=== PATIENT | male | born 1940 | race Caucasian/White ===

== ENCOUNTER → 2020-02-18 | Emergency (ER) | payer MEDICARE, OTHER ==
[~2020-02-18] VITALS: Ht 172.7 cm; Wt 97.5 kg
[~2020-02-18] MED LIST: AMLO10TA13 PO; ATEN-60 PO; CHOLCAP11 PO; CLOP75TA41 PO; HYDR25TA4 PO; LOSA-39 PO; METF-371 PO; MULT1TAB95 PO; SIMV-13 PO; TAMS0.4C36 PO
[2020-02-18 15:00] VITALS: BP 141/52
== END | disposition home or self-care (01) ==
LOC: ER 14:14
DX: S09.8XXA Other specified injuries of head, initial encounter (principal); M25.511 Pain in right shoulder; E11.9 Type 2 diabetes mellitus without complications; I10 Essential (primary) hypertension; Z86.73 Personal history of transient ischemic attack (TIA), and cerebral infarction without residual deficits; X58.XXXA Exposure to other specified factors, initial encounter; Y93.89 Activity, other specified; Y92.89 Other specified places as the place of occurrence of the external cause; Y99.8 Other external cause status
CPT/HCPCS: 70450; 73030

== ENCOUNTER 2021-06-10 22:24 | Inpatient (IN) | payer MEDICARE, OTHER ==
[~2021-06-10] VITALS: Ht 172.7 cm; Wt 92.2 kg
[~2021-06-10 22:24] MED LIST changes: +AMLO-496 PO; -AMLO10TA13 PO; -CLOP75TA41 PO; +CLOP75TA70 PO
[2021-06-10 23:22] LABS: Basophils # (auto) 0.2 10 ^3/uL (0-0.2); Eosinophils # (auto) 0.2 10 ^3/uL (0-0.8); Eosinophils % (auto) 2.4 % (0.0-7.0); Hematocrit 43.4 % (41.0-53.0); Hemoglobin 14.6 g/dL (13.5-17.5); Lymphocytes # (auto) 1.2 10 ^3/uL (0.4-5.4); Lymphocytes % (auto) 18.6 % (10.0-50.0); Mean Corpuscular Hemoglobin 29.3 pg (28.0-32.0); Mean Corpuscular Hgb Conc. 33.5 g/dL (32.0-36.0); Mean Corpuscular Volume 87.3 fL (80.0-100.0); Monocytes # (auto) 0.7 10 ^3/uL (0-1.3); Monocytes % (auto) 11.8 % (0.0-12.0); Neutrophils % (auto) 64.2 % (37.0-80.0); Red Blood Cells 4.97 10^6/uL (4.5-5.90); Red Cell Distribution Width 14.7 % (11.8-14.3); White Blood Cell 6.3 10^3/uL (4.4-10.8)
[2021-06-10 23:40] LABS: Albumin 3.9 g/dL (3.4-5.0); Anion Gap 10 (5-15); Blood Urea Nitrogen 62 mg/dL (7-18); Calcium 9.4 mg/dL (8.5-10.1); Carbon Dioxide 24 mmol/L (21-32); Chloride 105 mmol/L (98-107); Glucose 110 mg/dL (74-106); Potassium 3.9 mmol/L (3.5-5.1); Sodium 139 mmol/L (136-145)
[2021-06-10 23:49] LABS: Alanine Aminotransferase 32 U/L (16-61); Aspartate Aminotransferase 21 U/L (15-37); GFR African American 40 mL/min; GFR Non-African American 33 mL/min; Total Protein 7.2 g/dL (6.4-8.2)
[2021-06-11 00:01] LABS: Alkaline Phosphatase 60 U/L (45-117); Bilirubin, Total 0.8 mg/dL (0.2-1.0)
[2021-06-11] MEDS ORDERED: NITROGLYCERIN 0.4 MG SL TAB SL PRN (02:45)
[2021-06-11] MEDS ORDERED: ONDANSETRON HCL 4 MG/2 ML VIAL IV PRN (02:45)
[2021-06-11] MEDS ORDERED: DEXTROSE (50%) 50ML SYRG IV PRN (02:45)
[2021-06-11] MEDS ORDERED: MORPHINE SULFATE INJECTION 2 MG/ML SYRG IV PRN (02:45)
[2021-06-11] MEDS ORDERED: SODIUM CHLORIDE 0.9% 500 ML IV ONE (02:45)
[2021-06-11] MEDS: ACCU-CHEK COMFORT CURVE STRIP VI SCH ×4 (06:58→21:26)
[2021-06-11] MEDS: InsuLIN REG 1unit/0.01ml Soln (100units/ml) SC SCH ×4 (07:00→21:25)
[2021-06-11 09:00] VITALS: BP 141/62
[2021-06-11] MEDS ORDERED: PANTOPRAZOLE 40 MG TAB PO SCH (10:00)
[2021-06-11] MEDS: ATENOLOL 25 MG TAB PO SCH ×2 (10:00→21:25)
[2021-06-11] MEDS: ASPirin 81 mg TAB PO SCH (10:43)
[2021-06-11] MEDS: CLOPIDOGREL BISULFATE 75 MG TAB PO SCH (10:44)
[2021-06-11] MEDS: ENOXAPARIN SOD 40 MG/0.4 ML SYRINGE SC SCH (10:44)
[2021-06-11] MEDS: amLODIPine BESYLATE 5 MG TAB PO SCH (11:25)
[2021-06-11 13:00] VITALS: BP 137/62
[2021-06-11 16:25] LABS: Urine Bacteria NONE SEEN /hpf (None Seen); Urine Blood Negative /uL (Negative); Urine Specific Gravity 1.013 (1.001-1.035); Urine WBC None Seen /hpf (0 - 3)
[2021-06-11 16:36] LABS: Creatinine, Urine 49 mg/dL (30.0-125.0); Sodium Urine 70 mmol/L (40-220)
[2021-06-11 17:00] VITALS: BP 135/66
[2021-06-11] MEDS: ATORVASTATIN 20 MG TAB PO SCH (21:24)
[2021-06-11 21:46] VITALS: BP 113/67
[2021-06-12] MEDS: ACETAMINOPHEN 325 MG TAB PO PRN ×2 (03:53→20:12)
[2021-06-12 04:58] VITALS: BP 124/55
[2021-06-12] MEDS: ACCU-CHEK COMFORT CURVE STRIP VI SCH ×3 (06:13→17:00)
[2021-06-12] MEDS: InsuLIN REG 1unit/0.01ml Soln (100units/ml) SC SCH ×3 (06:14→18:21)
[2021-06-12 07:04] LABS: Basophils # (auto) 0 10 ^3/uL (0-0.2); Basophils % (auto) 0.9 % (0.0-2.0); Eosinophils # (auto) 0.2 10 ^3/uL (0-0.8); Eosinophils % (auto) 3.3 % (0.0-7.0); Hematocrit 39.5 % (41.0-53.0); Hemoglobin 13.2 g/dL (13.5-17.5); Lymphocytes # (auto) 0.9 10 ^3/uL (0.4-5.4); Lymphocytes % (auto) 17.6 % (10.0-50.0); Mean Corpuscular Hemoglobin 28.9 pg (28.0-32.0); Mean Corpuscular Hgb Conc. 33.3 g/dL (32.0-36.0); Mean Corpuscular Volume 86.9 fL (80.0-100.0); Monocytes # (auto) 0.7 10 ^3/uL (0-1.3); Monocytes % (auto) 14.5 % (0.0-12.0); Neutrophils # (auto) 3.1 10 ^3/uL (1.6-8.6); Neutrophils % (auto) 63.7 % (37.0-80.0); Nucleated Red Blood Cells % 0.1 %; Red Blood Cells 4.55 10^6/uL (4.5-5.90); Red Cell Distribution Width 14.7 % (11.8-14.3); White Blood Cell 4.9 10^3/uL (4.4-10.8)
[2021-06-12 07:12] LABS: Potassium 4.2 mmol/L (3.5-5.1)
[2021-06-12 07:19] LABS: Albumin 3.3 g/dL (3.4-5.0); BUN/Creatinine Ratio 29.5; Bilirubin, Total 0.8 mg/dL (0.2-1.0); Calcium 8.8 mg/dL (8.5-10.1); Total Protein 6.3 g/dL (6.4-8.2)
[2021-06-12 09:00] VITALS: BP 144/81
[2021-06-12] MEDS: ATENOLOL 25 MG TAB PO SCH (10:00)
[2021-06-12] MEDS: amLODIPine BESYLATE 5 MG TAB PO SCH (11:17)
[2021-06-12] MEDS: ASPirin 81 mg TAB PO SCH (11:17)
[2021-06-12] MEDS: CLOPIDOGREL BISULFATE 75 MG TAB PO SCH (11:18)
[2021-06-12] MEDS: ENOXAPARIN SOD 40 MG/0.4 ML SYRINGE SC SCH (11:19)
[2021-06-12 13:09] VITALS: BP 137/72
[2021-06-12 17:00] VITALS: BP 134/62
[2021-06-13 00:20] VITALS: BP 128/52
[2021-06-13] MEDS: ATORVASTATIN 20 MG TAB PO SCH ×2 (00:32→22:41)
[2021-06-13] MEDS: ATENOLOL 25 MG TAB PO SCH ×3 (00:33→22:42)
[2021-06-13] MEDS: InsuLIN REG 1unit/0.01ml Soln (100units/ml) SC SCH ×5 (00:34→22:43)
[2021-06-13] MEDS: ACCU-CHEK COMFORT CURVE STRIP VI SCH ×5 (00:35→22:42)
[2021-06-13 05:00] VITALS: BP 127/46
[2021-06-13 06:17] LABS: Albumin 3.2 g/dL (3.4-5.0)
[2021-06-13 06:32] LABS: BUN/Creatinine Ratio 23.2; Bilirubin, Total 0.6 mg/dL (0.2-1.0); Total Protein 6.6 g/dL (6.4-8.2)
[2021-06-13 06:41] LABS: Potassium 4.7 mmol/L (3.5-5.1)
[2021-06-13 09:00] VITALS: BP 130/48
[2021-06-13] MEDS: CLOPIDOGREL BISULFATE 75 MG TAB PO SCH (10:00)
[2021-06-13] MEDS: ENOXAPARIN SOD 40 MG/0.4 ML SYRINGE SC SCH (10:00)
[2021-06-13] MEDS: ASPirin 81 mg TAB PO SCH (10:00)
[2021-06-13] MEDS: amLODIPine BESYLATE 5 MG TAB PO SCH (10:29)
[2021-06-13] MEDS ORDERED: GLIP10TA9 PO (12:21)
[2021-06-13] MEDS ORDERED: METF-371 PO (12:21)
[2021-06-13] MEDS ORDERED: SACU1TAB PO (12:21)
[2021-06-13] MEDS ORDERED: ATOR-47 PO (12:21)
[2021-06-13] MEDS ORDERED: EMPA1TAB3 PO (12:21)
[2021-06-13] MEDS ORDERED: FURO40TA4 PO (12:21)
[2021-06-13] MEDS ORDERED: CARV3.1240 PO (12:21)
[2021-06-13] MEDS ORDERED: OMEG100078 PO (12:21)
[2021-06-13] MEDS ORDERED: CHOLCAP11 PO (12:21)
[2021-06-13] MEDS ORDERED: NITR0.4S29 SL (12:21)
[2021-06-13] MEDS ORDERED: MULT1TAB95 PO (12:21)
[2021-06-13 12:31] VITALS: BP 133/57
[2021-06-13 17:00] VITALS: BP 135/44
[2021-06-13] MEDS: ACETAMINOPHEN 325 MG TAB PO PRN (19:53)
[2021-06-13 22:24] VITALS: BP 133/59
[2021-06-14] MEDS: ACETAMINOPHEN 325 MG TAB PO PRN ×2 (04:01→23:02)
[2021-06-14 05:08] VITALS: BP 125/60
[2021-06-14 05:50] LABS: Basophils # (auto) 0 10 ^3/uL (0-0.2); Basophils % (auto) 0.8 % (0.0-2.0); Eosinophils # (auto) 0.3 10 ^3/uL (0-0.8); Eosinophils % (auto) 4.8 % (0.0-7.0); Hematocrit 39.7 % (41.0-53.0); Hemoglobin 13.5 g/dL (13.5-17.5); Lymphocytes # (auto) 1.3 10 ^3/uL (0.4-5.4); Mean Corpuscular Hemoglobin 29.6 pg (28.0-32.0); Monocytes # (auto) 0.8 10 ^3/uL (0-1.3); Monocytes % (auto) 15.9 % (0.0-12.0); Neutrophils # (auto) 2.8 10 ^3/uL (1.6-8.6); Neutrophils % (auto) 53.5 % (37.0-80.0); Nucleated Red Blood Cells % 0.1 %; Red Blood Cells 4.56 10^6/uL (4.5-5.90); Red Cell Distribution Width 14.9 % (11.8-14.3); White Blood Cell 5.3 10^3/uL (4.4-10.8)
[2021-06-14 06:01] LABS: Potassium 4.5 mmol/L (3.5-5.1)
[2021-06-14 06:06] LABS: BUN/Creatinine Ratio 24.6; Calcium 8.9 mg/dL (8.5-10.1)
[2021-06-14] MEDS: ACCU-CHEK COMFORT CURVE STRIP VI SCH ×4 (06:34→22:54)
[2021-06-14] MEDS: InsuLIN REG 1unit/0.01ml Soln (100units/ml) SC SCH ×4 (06:35→22:56)
[2021-06-14 09:00] VITALS: BP 128/40
[2021-06-14] MEDS: amLODIPine BESYLATE 5 MG TAB PO SCH ×2 (09:58→10:00)
[2021-06-14] MEDS: CLOPIDOGREL BISULFATE 75 MG TAB PO SCH (09:59)
[2021-06-14] MEDS: ENOXAPARIN SOD 40 MG/0.4 ML SYRINGE SC SCH (09:59)
[2021-06-14] MEDS: ATENOLOL 25 MG TAB PO SCH ×2 (10:00→22:55)
[2021-06-14] MEDS ORDERED: HYDROcodone-ACET 5/325MG TAB PO PRN (11:15)
[2021-06-14 13:00] VITALS: BP 138/51
[2021-06-14] MEDS: CALAMINE TOPical LOTION180 ML TOP SCH ×2 (14:42→22:54)
[2021-06-14] MEDS: ACYCLOVIR 400 MG TAB PO SCH ×3 (14:42→22:56)
[2021-06-14 15:00] VITALS: BP 114/59
[2021-06-14 17:00] VITALS: BP 114/59
[2021-06-14 22:00] VITALS: BP 129/49
[2021-06-14] MEDS: ATORVASTATIN 20 MG TAB PO SCH (22:53)
[2021-06-15 05:00] VITALS: BP 148/39
[2021-06-15 06:22] LABS: Basophils # (auto) 0.1 10 ^3/uL (0-0.2); Basophils % (auto) 1.3 % (0.0-2.0); Eosinophils # (auto) 0.2 10 ^3/uL (0-0.8); Hematocrit 40.4 % (41.0-53.0); Hemoglobin 13.7 g/dL (13.5-17.5); Lymphocytes # (auto) 1.7 10 ^3/uL (0.4-5.4); Lymphocytes % (auto) 29.7 % (10.0-50.0); Mean Corpuscular Hemoglobin 29.4 pg (28.0-32.0); Mean Corpuscular Hgb Conc. 33.9 g/dL (32.0-36.0); Mean Corpuscular Volume 86.7 fL (80.0-100.0); Monocytes # (auto) 0.8 10 ^3/uL (0-1.3); Monocytes % (auto) 14.6 % (0.0-12.0); Neutrophils # (auto) 2.8 10 ^3/uL (1.6-8.6); Neutrophils % (auto) 50.4 % (37.0-80.0); Nucleated Red Blood Cells % 0.2 %; Red Blood Cells 4.66 10^6/uL (4.5-5.90); Red Cell Distribution Width 14.8 % (11.8-14.3); White Blood Cell 5.6 10^3/uL (4.4-10.8)
[2021-06-15] MEDS: CALAMINE TOPical LOTION180 ML TOP SCH ×3 (06:49→23:41)
[2021-06-15] MEDS: ACYCLOVIR 400 MG TAB PO SCH ×5 (06:49→23:41)
[2021-06-15] MEDS: ACCU-CHEK COMFORT CURVE STRIP VI SCH ×4 (06:50→23:41)
[2021-06-15] MEDS: InsuLIN REG 1unit/0.01ml Soln (100units/ml) SC SCH ×4 (06:51→23:44)
[2021-06-15 09:00] VITALS: BP 153/52
[2021-06-15] MEDS: CLOPIDOGREL BISULFATE 75 MG TAB PO SCH (09:38)
[2021-06-15] MEDS: amLODIPine BESYLATE 5 MG TAB PO SCH (09:38)
[2021-06-15] MEDS: ASPirin 81 mg TAB PO SCH (09:38)
[2021-06-15] MEDS: ATENOLOL 25 MG TAB PO SCH ×2 (09:39→23:42)
[2021-06-15] MEDS: ENOXAPARIN SOD 40 MG/0.4 ML SYRINGE SC SCH (09:39)
[2021-06-15 22:00] VITALS: BP 136/34
[2021-06-15] MEDS: ATORVASTATIN 20 MG TAB PO SCH (23:40)
[2021-06-16 05:00] VITALS: BP 153/53
[2021-06-16] MEDS: ACYCLOVIR 400 MG TAB PO SCH ×5 (06:24→21:04)
[2021-06-16] MEDS: ACCU-CHEK COMFORT CURVE STRIP VI SCH ×4 (06:25→21:04)
[2021-06-16] MEDS: InsuLIN REG 1unit/0.01ml Soln (100units/ml) SC SCH ×4 (06:25→21:06)
[2021-06-16] MEDS: CALAMINE TOPical LOTION180 ML TOP SCH ×3 (06:25→21:04)
[2021-06-16] MEDS ORDERED: NYSTATIN TOPICAL POWDER 15GM TOP ONE (10:30)
[2021-06-16] MEDS: ASPirin 81 mg TAB PO SCH (11:17)
[2021-06-16] MEDS: CLOPIDOGREL BISULFATE 75 MG TAB PO SCH (11:18)
[2021-06-16] MEDS: amLODIPine BESYLATE 5 MG TAB PO SCH (11:18)
[2021-06-16] MEDS: ATENOLOL 25 MG TAB PO SCH ×2 (11:19→21:22)
[2021-06-16] MEDS: ENOXAPARIN SOD 40 MG/0.4 ML SYRINGE SC SCH (11:20)
[2021-06-16 12:30] VITALS: BP 146/52
[2021-06-16 16:39] VITALS: BP 137/59
[2021-06-16] MEDS: ATORVASTATIN 20 MG TAB PO SCH (21:01)
[2021-06-16] MEDS: NYSTATIN TOPICAL POWDER 15GM TOP SCH (21:04)
[2021-06-16 21:24] VITALS: BP 123/35
[2021-06-17 04:54] VITALS: BP 111/31
[2021-06-17] MEDS: ACCU-CHEK COMFORT CURVE STRIP VI SCH ×4 (06:39→21:46)
[2021-06-17] MEDS: InsuLIN REG 1unit/0.01ml Soln (100units/ml) SC SCH ×4 (06:40→21:52)
[2021-06-17] MEDS: CALAMINE TOPical LOTION180 ML TOP SCH ×3 (06:41→21:45)
[2021-06-17] MEDS: ACYCLOVIR 400 MG TAB PO SCH ×5 (06:41→21:45)
[2021-06-17 06:54] LABS: Potassium 4.6 mmol/L (3.5-5.1)
[2021-06-17 06:58] LABS: Calcium 9.1 mg/dL (8.5-10.1)
[2021-06-17 08:00] VITALS: BP 130/41
[2021-06-17] MEDS: CLOPIDOGREL BISULFATE 75 MG TAB PO SCH (08:07)
[2021-06-17] MEDS: ASPirin 81 mg TAB PO SCH (08:08)
[2021-06-17] MEDS: ENOXAPARIN SOD 40 MG/0.4 ML SYRINGE SC SCH (08:09)
[2021-06-17] MEDS: NYSTATIN TOPICAL POWDER 15GM TOP SCH ×2 (08:10→21:46)
[2021-06-17] MEDS: ATENOLOL 25 MG TAB PO SCH ×2 (10:00→21:44)
[2021-06-17] MEDS: amLODIPine BESYLATE 5 MG TAB PO SCH (10:00)
[2021-06-17 12:00] VITALS: BP 134/59
[2021-06-17 16:00] VITALS: BP 131/42
[2021-06-17] MEDS: ATORVASTATIN 20 MG TAB PO SCH (21:44)
[2021-06-18 05:17] VITALS: BP 110/55
[2021-06-18] MEDS: ACCU-CHEK COMFORT CURVE STRIP VI SCH ×4 (06:05→22:07)
[2021-06-18] MEDS: InsuLIN REG 1unit/0.01ml Soln (100units/ml) SC SCH ×4 (06:05→22:06)
[2021-06-18] MEDS: ACYCLOVIR 400 MG TAB PO SCH ×5 (06:37→22:05)
[2021-06-18] MEDS: CALAMINE TOPical LOTION180 ML TOP SCH ×3 (06:37→22:07)
[2021-06-18 09:00] VITALS: BP 128/46
[2021-06-18] MEDS: NYSTATIN TOPICAL POWDER 15GM TOP SCH ×2 (09:22→22:08)
[2021-06-18] MEDS: ENOXAPARIN SOD 40 MG/0.4 ML SYRINGE SC SCH (09:22)
[2021-06-18] MEDS: ASPirin 81 mg TAB PO SCH (09:23)
[2021-06-18] MEDS: CLOPIDOGREL BISULFATE 75 MG TAB PO SCH (09:24)
[2021-06-18] MEDS: ATENOLOL 25 MG TAB PO SCH ×2 (10:00→22:05)
[2021-06-18] MEDS: amLODIPine BESYLATE 5 MG TAB PO SCH (10:00)
[2021-06-18 13:00] VITALS: BP 130/63
[2021-06-18 17:00] VITALS: BP 125/64
[2021-06-18 22:00] VITALS: BP 103/56
[2021-06-18] MEDS: ATORVASTATIN 20 MG TAB PO SCH (22:03)
[2021-06-19 05:00] VITALS: BP 124/43
[2021-06-19] MEDS: ACYCLOVIR 400 MG TAB PO SCH ×5 (06:28→22:29)
[2021-06-19] MEDS: ACCU-CHEK COMFORT CURVE STRIP VI SCH ×4 (06:29→22:00)
[2021-06-19] MEDS: CALAMINE TOPical LOTION180 ML TOP SCH ×3 (06:29→22:00)
[2021-06-19] MEDS: InsuLIN REG 1unit/0.01ml Soln (100units/ml) SC SCH ×4 (06:32→22:00)
[2021-06-19 09:00] VITALS: BP 127/91
[2021-06-19] MEDS: amLODIPine BESYLATE 5 MG TAB PO SCH (10:00)
[2021-06-19] MEDS: ATENOLOL 25 MG TAB PO SCH ×2 (10:00→22:00)
[2021-06-19] MEDS: CLOPIDOGREL BISULFATE 75 MG TAB PO SCH (10:16)
[2021-06-19] MEDS: ASPirin 81 mg TAB PO SCH (10:16)
[2021-06-19] MEDS: ENOXAPARIN SOD 40 MG/0.4 ML SYRINGE SC SCH (10:17)
[2021-06-19] MEDS: NYSTATIN TOPICAL POWDER 15GM TOP SCH ×2 (10:18→22:00)
[2021-06-19 13:00] VITALS: BP 134/51
[2021-06-19 17:00] VITALS: BP 138/66
[2021-06-19 22:00] VITALS: BP 124/36
[2021-06-19] MEDS: ATORVASTATIN 20 MG TAB PO SCH (22:27)
[2021-06-20 05:00] VITALS: BP 140/59
[2021-06-20] MEDS: CALAMINE TOPical LOTION180 ML TOP SCH ×3 (06:00→22:00)
[2021-06-20] MEDS: ACYCLOVIR 400 MG TAB PO SCH ×5 (06:00→22:14)
[2021-06-20] MEDS: ACCU-CHEK COMFORT CURVE STRIP VI SCH ×4 (06:51→22:14)
[2021-06-20] MEDS: InsuLIN REG 1unit/0.01ml Soln (100units/ml) SC SCH ×4 (06:54→22:16)
[2021-06-20 07:22] LABS: Basophils # (auto) 0 10 ^3/uL (0-0.2); Basophils % (auto) 0.6 % (0.0-2.0); Eosinophils # (auto) 0.2 10 ^3/uL (0-0.8); Eosinophils % (auto) 3.2 % (0.0-7.0); Hematocrit 38.4 % (41.0-53.0); Hemoglobin 12.8 g/dL (13.5-17.5); Lymphocytes # (auto) 1.5 10 ^3/uL (0.4-5.4); Lymphocytes % (auto) 26.3 % (10.0-50.0); Mean Corpuscular Hemoglobin 29.2 pg (28.0-32.0); Mean Corpuscular Hgb Conc. 33.3 g/dL (32.0-36.0); Mean Corpuscular Volume 87.5 fL (80.0-100.0); Monocytes # (auto) 0.6 10 ^3/uL (0-1.3); Neutrophils # (auto) 3.5 10 ^3/uL (1.6-8.6); Neutrophils % (auto) 58.9 % (37.0-80.0); Nucleated Red Blood Cells % 0.2 %; Red Blood Cells 4.38 10^6/uL (4.5-5.90); Red Cell Distribution Width 14.6 % (11.8-14.3); White Blood Cell 5.9 10^3/uL (4.4-10.8)
[2021-06-20 09:00] VITALS: BP 140/52
[2021-06-20] MEDS: ATENOLOL 25 MG TAB PO SCH ×2 (10:00→22:00)
[2021-06-20] MEDS: ENOXAPARIN SOD 40 MG/0.4 ML SYRINGE SC SCH (10:00)
[2021-06-20] MEDS: amLODIPine BESYLATE 5 MG TAB PO SCH (10:00)
[2021-06-20] MEDS: CLOPIDOGREL BISULFATE 75 MG TAB PO SCH (10:00)
[2021-06-20] MEDS: ASPirin 81 mg TAB PO SCH (10:00)
[2021-06-20] MEDS: NYSTATIN TOPICAL POWDER 15GM TOP SCH ×2 (10:00→22:15)
[2021-06-20 13:00] VITALS: BP 134/59
[2021-06-20 16:09] LABS: Anion Gap 3 (5-15); BUN/Creatinine Ratio 23.9; Blood Urea Nitrogen 33 mg/dL (7-18); Calcium 9.4 mg/dL (8.5-10.1); Carbon Dioxide 27 mmol/L (21-32); Chloride 108 mmol/L (98-107); GFR African American 64 mL/min; GFR Non-African American 53 mL/min; Glucose 123 mg/dL (74-106); Potassium 4.4 mmol/L (3.5-5.1); Sodium 138 mmol/L (136-145)
[2021-06-20 17:00] VITALS: BP 144/55
[2021-06-20] MEDS ORDERED: MAGNESIUM CITRATE SOLUTION 300 ML BTL PO ONE (18:00)
[2021-06-20 22:00] VITALS: BP 125/34
[2021-06-20] MEDS: ATORVASTATIN 20 MG TAB PO SCH (22:14)
[2021-06-21 05:00] VITALS: BP 130/46
[2021-06-21] MEDS: CALAMINE TOPical LOTION180 ML TOP SCH ×2 (06:00→13:55)
[2021-06-21] MEDS: ACYCLOVIR 400 MG TAB PO SCH ×3 (06:04→13:53)
[2021-06-21] MEDS: ACCU-CHEK COMFORT CURVE STRIP VI SCH ×2 (06:04→12:37)
[2021-06-21] MEDS: InsuLIN REG 1unit/0.01ml Soln (100units/ml) SC SCH ×2 (06:04→12:38)
[2021-06-21 08:00] VITALS: BP 125/34
[2021-06-21 08:45] VITALS: BP 137/49
[2021-06-21] MEDS: amLODIPine BESYLATE 5 MG TAB PO SCH (09:43)
[2021-06-21] MEDS: ATENOLOL 25 MG TAB PO SCH (09:44)
[2021-06-21] MEDS: ASPirin 81 mg TAB PO SCH (09:44)
[2021-06-21] MEDS: CLOPIDOGREL BISULFATE 75 MG TAB PO SCH (09:46)
[2021-06-21] MEDS: ENOXAPARIN SOD 40 MG/0.4 ML SYRINGE SC SCH (09:46)
[2021-06-21] MEDS: NYSTATIN TOPICAL POWDER 15GM TOP SCH (09:47)
[2021-06-21 12:41] VITALS: BP 144/53
[2021-06-21] MEDS ORDERED: ACYC-163 PO (15:13)
[2021-06-21 16:14] VITALS: BP 148/58
[2021-06-21 17:21] VITALS: BP 137/49
== END 2021-06-21 18:00 | disposition home or self-care (01) | DRG 309 ==
LOC: ER 22:24 → OVERFLOW 06-11 02:32 → TELE-CENTR 06-11 08:49 → TELE-WESTW 06-14 19:47
PROVIDERS: ADMIT Nurse Practitioner; ATTEND Internal Medicine
DX: R00.1 Bradycardia, unspecified (principal); N17.9 Acute kidney failure, unspecified; R00.8 Other abnormalities of heart beat; I25.10 Atherosclerotic heart disease of native coronary artery without angina pectoris; N18.32 Chronic kidney disease, stage 3b; B02.9 Zoster without complications; E11.22 Type 2 diabetes mellitus with diabetic chronic kidney disease; M54.9 Dorsalgia, unspecified; I12.9 Hypertensive chronic kidney disease with stage 1 through stage 4 chronic kidney disease, or unspecified chronic kidney disease; Z20.822 Contact with and (suspected) exposure to COVID-19; Z79.02 Long term (current) use of antithrombotics/antiplatelets; Z98.61 Coronary angioplasty status; E78.5 Hyperlipidemia, unspecified; Z82.49 Family history of ischemic heart disease and other diseases of the circulatory system; Z83.3 Family history of diabetes mellitus; Z86.73 Personal history of transient ischemic attack (TIA), and cerebral infarction without residual deficits; Z95.1 Presence of aortocoronary bypass graft; Z79.899 Other long term (current) drug therapy
CPT/HCPCS: 36415; 71045; 80048; 80053; 81001; 82570; 82962; 83036; 83735; 83880; 84300; 84443; 84484; 85025; 87081; 87426; 93005; 93306; 96360; G0378; J1815

== ENCOUNTER 2024-03-18 18:08 | Inpatient (IN) | payer OTHER, MEDICARE, MEDICAID ==
[~2024-03-18] VITALS: Ht 172.7 cm; Wt 95.8 kg
[~2024-03-18 18:08] MED LIST changes: +ACYC1TAB2 PO; -AMLO-496 PO; -ATEN-60 PO; +ATOR-47 PO; +EMPA1TAB3 PO; +FURO40TA4 PO; +GLIP10TA9 PO; -HYDR25TA4 PO; -LOSA-39 PO; +NITR0.4S29 SL; +OMEG-20 PO; +SACU1TAB PO; -SIMV-13 PO; -TAMS0.4C36 PO; +TAMS0.4C39 PO
--- NOTE | 2024-03-18 18:54 | ED.PDOC ---
History of Present Illness HPI Comments 83-year-old male brought in by family complaining of body aches for the past week. Patient states pain is generalized, however is worse in both feet where he has neuropathy, in his right knee where he has arthritis, and in both shoulders where he has rotator cuff injuries. He denies any fever, sore throat, cough, chest pain or recent change in activity or injury. He does report increased intestinal gas, indigestion, nausea, urinary frequency, constipation and right lower quadrant pain. He denies any hematuria. Chief Complaint: Body Pain Time Seen by MD: 18:26 Allergies: Coded Allergies: NO KNOWN ALLERGIES (Verified , 06/15/09) Home Meds Active Scripts Acyclovir (Acyclovir) 400 Mg Tab, 400 MG PO 5XD for 14 Days, #70 TAB Prov:JIAN PEREIRA MD 06/21/21 Cholecalciferol (D 5000) 5,000 Unit Cap, 5000 UNIT PO DAILY, #30 CAP Prov:PRABHA CARDENAS 06/13/21 Metformin Hydrochloride (Metformin Hcl) 850 Mg Tab, 1 TAB PO DAILY, #30 TAB Prov:PRABHA CARDENAS 06/13/21 Multiple Vitamin (Multi Vitamin) 1 Tab Tab, 1 TAB PO DAILY, #30 TAB Prov:PRABHA CARDENAS 06/13/21 Reported Medications Empagliflozin (Jardiance) 25 Mg Tab, 0.5 TAB PO DAILY for 30 Days, #15 TAB 06/13/21 Nitroglycerin (NTROSTAT SUBLINGUAL) 0.4 Mg Sl, 0.4 MG SL PRN for 30 Days, TAB *MAY REPEAT EVERY 5 MINUTES X 3 TOTAL IF NO RELIEF, INITIATE ANALGESIC THERAPY. NOTIFY PHYSICIAN *Do not crush. 06/13/21 [place]-3 Fatty Acids (FISH OIL) 1,000 Mg Cap, 1000 MG PO DAILY for 30 Days, CAP 06/13/21 Furosemide (Furosemide) 40 Mg Tab, 40 MG PO BID for 30 Days, MG 06/13/21 Sacubitril-Valsartan (Entresto 24-26 mg) 1 Tab Tab, 1 TAB PO BID for 30 Days, #60 TAB 06/13/21 Atorvastatin Calcium (ATORVASTATIN CALCIUM) 80 Mg Tab, 1 TAB PO HS, #30 TAB 5 Refills 06/13/21 Glipizide (Glipizide) 10 Mg Tab, 2 TAB PO BID for 30 Days, MG 06/13/21 Clopidogrel Bisulfate (CLOPIDOGREL) 75 Mg Tab, 1 TAB PO DAILY, TAB 10/13/18 Tamsulosin Hcl (Tamsulosin Hcl) 0.4 Mg Cap, 1 CAP PO DAILY, CAP 10/13/18 Mode of Arrival: Ambulatory Past Medical History PAST MEDICAL HISTORY: CAD, CVA, DM, High Lipids, HTN Surgical History: PTCA Surgical History (Other): CABG Family History Family History: Reviewed,noncontributory to illness Social History Smoker: Non-Smoker Alcohol: Denies ETOH Use Drugs: Denies Drug Use Lives In: Home All Other Systems: Reviewed and Negative (Comprehensive systems review obtained and negative except for what is stated in the HPI.) Physical Exam General Appearance: No Apparent Distress HEENT: Normal ENT Inspection Neck: Full Range of Motion, Normal Inspection Respiratory: Lungs Clear, No Accessory Muscle Use, No Respiratory Distress, Normal Breath Sounds Cardiovascular: No Edema, No JVD, Regular Rate/Rhythm Breast Exam: Deferred Gastrointestinal: Epigastric, RLQ, Soft, Tenderness Genitalia: Deferred Pelvic: Deferred Rectal: Deferred Extremities: Normal inspection, Normal range of motion, No pedal edema, Other (Mild diffuse bilateral shoulder and right knee soft tissue tenderness. No edema.) Neurologic: Alert, No Motor Deficits, Normal Affect, Normal Mood, No Sensory Deficits, Other (Ambulatory without difficulty) Cerebellar Function: NOT DONE Reflexes: NOT DONE Skin: Dry, Normal Color, Warm Lymphatic: NOT DONE Was a procedure done? Was a procedure done?: No Differential Dx Considerations may include: Viral syndrome, enteritis, colitis, diverticular disease, appendicitis, UTI, electrolyte imbalance, sepsis, rhabdomyolysis, arthritis/arthralgia, neuropathy, among others X-Ray, Labs, Meds, VS Vital Signs Date Time Temp Pulse Resp B/P (MAP) Pulse Ox O2 Delivery O2 Flow Rate FiO2 03/18/24 20:03 98.2 68 18 117/80 (92) 97 98.2 03/18/24 20:03 68 18 97 03/18/24 18:23 97.6 68 18 112/51 (71) 96 Lab Test 03/18/24 19:13 03/18/24 19:04 03/18/24 18:54 Range/Units Influenza Type A Antigen Negative Negative Influenza Type B Antigen Negative Negative SARS-CoV-2 Antigen (Rapid) Negative NEGATIVE White Blood Count 11.7 H 4.4-10.8 10^3/uL Red Blood Count 5.63 4.5-5.90 10^6/uL Hemoglobin 16.9 13.5-17.5 g/dL Hematocrit 50.7 41.0-53.0 % Mean Corpuscular Volume 89.9 80.0-100.0 fL Mean Corpuscular Hemoglobin 30.1 28.0-32.0 pg Mean Corpuscular Hemoglobin Concent 33.5 32.0-36.0 g/dL Red Cell Distribution Width 14.1 11.8-14.3 % Platelet Count 169 140-450 10^3/uL Mean Platelet Volume 7.2 6.9-10.8 fL Neutrophils (%) (Auto) 94.5 H 37.0-80.0 % Lymphocytes (%) (Auto) 2.0 L 10.0-50.0 % Monocytes (%) (Auto) 3.1 0.0-12.0 % Eosinophils (%) (Auto) 0.2 0.0-7.0 % Basophils (%) (Auto) 0.2 0.0-2.0 % Neutrophils # (Auto) 11.0 H 1.6-8.6 10 ^3/uL Lymphocytes # (Auto) 0.2 L 0.4-5.4 10 ^3/uL Monocytes # (Auto) 0.4 0-1.3 10 ^3/uL Eosinophils # (Auto) 0 0-0.8 10 ^3/uL Basophils # (Auto) 0 0-0.2 10 ^3/uL Nucleated Red Blood Cells 0.0 % Sodium Level 138 136-145 mmol/L Potassium Level 4.9 3.5-5.1 mmol/L Chloride Level 101 98-107 mmol/L Carbon Dioxide Level 28 20-31 mmol/L Anion Gap 9 5-15 Blood Urea Nitrogen 28 H 9-23 mg/dL Creatinine 1.53 H 0.700-1.30 mg/dL Glomerular Filtration Rate Calc 45 >90 mL/min BUN/Creatinine Ratio 18.3 10.0-20.0 Serum Glucose 256 H 74-106 mg/dL Lactic Acid Level 2.8 *H 0.4-2.0 mmol/L Calcium Level 9.5 8.7-10.4 mg/dL Total Bilirubin 1.6 H 0.2-1.0 mg/dL Aspartate Amino Transferase (AST) 18 13-40 U/L Alanine Aminotransferase (ALT) 25 7-40 U/L Alkaline Phosphatase 83 46-116 U/L Creatine Kinase 64 46-171 U/L Troponin I High Sensitivity 14 </=54 ng/L B-Type Natriuretic Peptide 321.75 0-100 pg/mL Total Protein 6.5 5.7-8.2 g/dL Albumin 4.4 3.2-4.8 g/dL Urine Color Yellow Yellow Urine Clarity Clear Clear Urine pH 5.5 5.0-9.0 Urine Specific [place] 1.026 1.001-1.035 Urine Protein Negative Negative Urine Ketones Negative Negative Urine Blood Negative Negative /uL Urine Nitrite Negative Negative Urine Bilirubin Negative Negative Urine Urobilinogen Normal Negative mg/dL Urine Leukocyte Esterase Negative Negative /uL Urine RBC <1 0 - 3 /hpf Urine WBC <1 0 - 3 /hpf Urine Squamous Epithelial Cells None seen <5 /hpf Urine Bacteria None seen None Seen /hpf Urine Glucose 4+ H Normal mg/dL PROCEDURE(s): ABPL - CT AB PEL WO CON-NO ORAL OR IV REASON: RLQ pain ORDER NUMBER(s): [id number], ACCESSION NUMBER(s): [id number] Exam: CT CT AB PEL WO CON-NO ORAL OR IV History: RLQ pain Comparison Study: None available at time of dictation. Technique: Multidetector CT of the abdomen and pelvis without contrast. Axial, coronal and sagittal multiplanar reformats were performed by the technologist on a separate workstation. Radiation Dose Information: CT Dose: CTDI volume is 20.18 mGy. Dose-length product is 1051.43 mGy*cm Findings: Bibasilar atelectasis. Borderline cardiomegaly. Liver, spleen, gallbladder, pancreas and adrenal glands are unremarkable. Kidneys, ureters unremarkable. Mild wall thickening of the urinary bladder which may be due to inadequate distention. Prostate measures 3.8 x 5.4 by 3.5 cm. Stomach is unremarkable. Small bowel loops unremarkable. Appendix is unremarkable. Small to moderate amount of fecal material within the colon. No evidence of intraperitoneal free air or free fluid. No evidence of aortic aneurysm. Moderate to heavy atherosclerotic calcification of the aorta and bilateral iliacs. No significant lymphadenopathy. The soft tissues are unremarkable. No destructive osseous lesions are noted. IMPRESSION: The appendix is unremarkable. Mild wall thickening of the urinary bladder which is most likely from inadequate distension. Correlation with urinalysis is recommended to exclude cystitis. Enlarged prostate. Recommend correlation with PSA. X-Ray, Labs, Meds, VS Comment 83-year-old male with a history of hypertension, diabetes, CAD, dyslipidemia, CVA, arthritis and neuropathy complaining of body aches and abdominal pain Vitals remarkable for BP 112/51 Exam remarkable for mild diffuse soft tissue tenderness of both shoulders and the right knee, abdominal tenderness in the epigastrium and right lower quadrant EKG pending CT abdomen and pelvis IMPRESSION: The appendix is unremarkable. Mild wall thickening of the urinary bladder which is most likely from inadequate distension. Correlation with urinalysis is recommended to exclude cystitis. Enlarged prostate. Recommend correlation with PSA. CBC remarkable for WBC 11.7 with left shift CMP remarkable for BUN 28, creatinine 1.53, glucose 256. Of note, patient's last BUN and creatinine values were 33 and 1.38 in June of 2021 BNP 321.75 CK, troponin, COVID and influenza negative UA 4+ glucose Patient treated with the following in the ED: L 0.9 normal saline IV bolus, [place] 5/325 mg p.o., Zofran 4 mg IV On re-evaluation, pain has improved, vitals are stable. Plan is to admit the patient for IV hydration and lactate trend. Time of 1ST Reevaluation: 18:53 Reevaluation 1ST: Unchanged Time of 2ND Reevaluation: 21:19 Reevaluation 2ND: Improved Patient Education/Counseling: Diagnosis, Treatment Family Education/Counseling: No Family Present Departure 1 Departure Time of Disposition: 21:19 Impression: Primary Impression: Body aches Additional Impressions: Acute kidney injury superimposed on CKD Elevated lactic acid level Disposition: ADMITTED INPATIENT Admit to: Med Surg Condition: Guarded Critical Care Note Critical Care Time?: No Stability Stability form required: No Heart Score Heart Score: Heart Score Response (Comments) Value History N/A 0 EKG N/A 0 Age N/A 0 Risk Factors N/A 0 Troponin N/A 0 Total 0 I personally scribed for MALCOM FERREIRA MD ([facility] [place]) on 03/18/24 at 19:03. Electronically submitted by Anny Santiago ([facility]). MALCOM FERREIRA MD Mar 18, 2024 18:54
[2024-03-18 18:57] LABS: Urine Bacteria None Seen /hpf (None Seen)
[2024-03-18 19:00] LABS: Urine Blood Negative /uL (Negative); Urine Clarity Clear (Clear); Urine Color Yellow (Yellow); Urine Protein, UAD Negative (Negative); Urine Specific Gravity 1.026 (1.001-1.035); Urine Urobilinogen Normal (Negative); Urine WBC <1 /hpf (0 - 3); Urine pH 5.5 (5.0-9.0)
[2024-03-18 19:15] LABS: Basophils # (auto) 0 10 ^3/uL (0-0.2); Basophils % (auto) 0.2 % (0.0-2.0); Eosinophils # (auto) 0 10 ^3/uL (0-0.8); Eosinophils % (auto) 0.2 % (0.0-7.0); Hematocrit 50.7 % (41.0-53.0); Hemoglobin 16.9 g/dL (13.5-17.5); Lymphocytes # (auto) 0.2 10 ^3/uL (0.4-5.4); Mean Corpuscular Hemoglobin 30.1 pg (28.0-32.0); Mean Corpuscular Hgb Conc. 33.5 g/dL (32.0-36.0); Mean Corpuscular Volume 89.9 fL (80.0-100.0); Monocytes # (auto) 0.4 10 ^3/uL (0-1.3); Monocytes % (auto) 3.1 % (0.0-12.0); Neutrophils % (auto) 94.5 % (37.0-80.0); Platelet Count (auto) 169 10^3/uL (140-450); Red Blood Cells 5.63 10^6/uL (4.5-5.90); Red Cell Distribution Width 14.1 % (11.8-14.3); White Blood Cell 11.7 10^3/uL (4.4-10.8)
[2024-03-18 19:33] LABS: Lactic Acid w/Reflex 2.8 mmol/L (0.4-2.0)
[2024-03-18 19:44] LABS: Anion Gap 9 (5-15); BUN/Creatinine Ratio 18.3 (10.0-20.0); Blood Urea Nitrogen 28 mg/dL (9-23); Calcium 9.5 mg/dL (8.7-10.4); Carbon Dioxide 28 mmol/L (20-31); Chloride 101 mmol/L (98-107); Glucose 256 mg/dL (74-106); Potassium 4.9 mmol/L (3.5-5.1); Sodium 138 mmol/L (136-145)
[2024-03-18 19:47] LABS: Alanine Aminotransferase 25 U/L (7-40); Albumin 4.4 g/dL (3.2-4.8); Alkaline Phosphatase 83 U/L (46-116); Aspartate Aminotransferase 18 U/L (13-40); Bilirubin, Total 1.6 mg/dL (0.2-1.0); Creatine Kinase IFCC 64 U/L (46-171); Total Protein 6.5 g/dL (5.7-8.2)
[2024-03-18] MEDS: ONDANSETRON HCL 4 MG/2 ML VIAL IV ONE (20:02)
[2024-03-18] MEDS: MORPHINE SULFATE INJ 2 MG/ml SYRG IV ONE (20:02)
--- NOTE | 2024-03-18 20:23 | DVH ---
Exam: CT CT AB PEL WO CON-NO ORAL OR IV History: RLQ pain Comparison Study: None available at time of dictation. Technique: Multidetector CT of the abdomen and pelvis without contrast. Axial, coronal and sagittal m ultiplanar reformats were performed by the technologist on a separate workstation. Radiation Dose Information: CT Dose: CTDI volume is 20.18 mGy. Dose-length product is 1051.43 mGy*cm Findings: Bibasilar atelectasis. Borderline cardiomegaly. Liver, spleen, gallbladder, pancreas and adrenal glands are unremarkable. Kidneys, ureters unremarkable. Mild wall thickening of the urinary bladder which may be due to inade quate distention. Prostate measures 3.8 x 5.4 by 3.5 cm. Stomach is unremarkable. Small bowel loops unremarkable. Appendix is unremarkable. Small to moderate amount of fecal material within the colon. No evidence of intraperitoneal free air or free fluid. No evidence of aortic aneurysm. Moderate to heavy atherosclerotic calcification of the aorta and kala ateral iliacs. No significant lymphadenopathy. The soft tissues are unremarkable. No destructive osseous lesions are noted. IMPRESSION: The appendix is unremarkable. Mild wall thickening of the urinary bladder which is most likely from inadequate distension. Correla tion with urinalysis is recommended to exclude cystitis. Enlarged prostate. Recommend correlation with PSA.
[2024-03-18 20:50] LABS: Rapid Influenza A Negative (Negative); Rapid Influenza B Negative (Negative)
[2024-03-18 20:51] LABS: COVID19 ANTIGEN SOFIA FIA NEGATIVE (NEGATIVE)
[2024-03-18] MEDS: SODIUM CHLORIDE 0.9% 1,000 ML IV ONE (21:47)
[2024-03-18] MEDS: HYDROcodone-ACET 5/325MG TAB PO ONE (22:10)
[2024-03-18 23:45] VITALS: BP 104/41; PULSE 67; RESP 20; TEMP 98.4; O2SAT 94
[2024-03-18 23:56] VITALS: PULSE 67; RESP 20; O2SAT 94
[2024-03-19] VITALS (11 sets, daily range): BP systolic 92–160; BP diastolic 38–81; PULSE 54–71; RESP 16–20; TEMP 97.5–98.5; O2SAT 93–99
[2024-03-19] MEDS ORDERED: ACETAMINOPHEN 325 MG TAB PO PRN (03:30)
[2024-03-19] MEDS ORDERED: MORPHINE SULFATE INJ 2 MG/ml SYRG IV PRN (03:30)
[2024-03-19] MEDS ORDERED: ONDANSETRON HCL 4 MG/2 ML VIAL IV PRN (03:30)
[2024-03-19] MEDS ORDERED: HYDROcodone-ACET 5/325MG TAB PO PRN (03:30)
[2024-03-19] MEDS ORDERED: DOCUSATE SOD 100 MG CAP PO PRN (03:30)
[2024-03-19] MEDS ORDERED: MAALOX PLUS or MAALOX 30 ML PO PRN (03:30)
[2024-03-19] MEDS: cefTRIAXone 1GM/50ML D5W 50 ML IV SCH (04:02)
[2024-03-19] MEDS: SODIUM CHLORIDE 0.9% 1,000 ML IV SCH (04:03)
[2024-03-19 05:08] LABS: Basophils # (auto) 0 10 ^3/uL (0-0.2); Basophils % (auto) 0.4 % (0.0-2.0); Eosinophils # (auto) 0.1 10 ^3/uL (0-0.8); Eosinophils % (auto) 0.9 % (0.0-7.0); Hematocrit 46.4 % (41.0-53.0); Hemoglobin 15.3 g/dL (13.5-17.5); Lymphocytes # (auto) 0.4 10 ^3/uL (0.4-5.4); Lymphocytes % (auto) 6.6 % (10.0-50.0); Mean Corpuscular Hemoglobin 29.8 pg (28.0-32.0); Mean Corpuscular Volume 90.3 fL (80.0-100.0); Monocytes # (auto) 0.4 10 ^3/uL (0-1.3); Monocytes % (auto) 6.7 % (0.0-12.0); Neutrophils # (auto) 5.3 10 ^3/uL (1.6-8.6); Neutrophils % (auto) 85.4 % (37.0-80.0); Nucleated Red Blood Cells % 0.1 %; Platelet Count (auto) 132 10^3/uL (140-450); Red Blood Cells 5.14 10^6/uL (4.5-5.90); Red Cell Distribution Width 13.8 % (11.8-14.3); White Blood Cell 6.2 10^3/uL (4.4-10.8)
[2024-03-19 05:12] LABS: Chloride 104 mmol/L (98-107); Potassium 4.2 mmol/L (3.5-5.1); Sodium 139 mmol/L (136-145)
[2024-03-19 05:13] LABS: Anion Gap 5 (5-15); Carbon Dioxide 30 mmol/L (20-31)
[2024-03-19 05:14] LABS: Calcium 9.1 mg/dL (8.7-10.4)
[2024-03-19 05:18] LABS: BUN/Creatinine Ratio 16.3 (10.0-20.0); Blood Urea Nitrogen 26 mg/dL (9-23)
[2024-03-19 05:20] LABS: Glucose 132 mg/dL (74-106)
[2024-03-19] MEDS: CHOLECALCIFEROL (VITD3) 1,000UNIT=25mCg TAB PO SCH (09:29)
[2024-03-19] MEDS: CLOPIDOGREL BISULFATE 75 MG TAB PO SCH (09:30)
[2024-03-19] MEDS: FUROSEMIDE 40 MG TAB PO SCH (09:30)
[2024-03-19] MEDS: MULTIPLE VITAMIN TAB PO SCH (09:30)
[2024-03-19] MEDS: FINASTERIDE 5 MG TAB PO SCH (09:31)
[2024-03-19] MEDS: Omega-3 Fatty Acids (Fish Oil) 1,000 MG CAP PO SCH (09:40)
[2024-03-19] MEDS: SACUBITRIL-VALSARTAN 24mg/26mg TAB PO SCH (09:41)
[2024-03-19] MEDS ORDERED: CHOLECALCIFEROL 5000 UNIT PO SCH (10:00)
--- NOTE | 2024-03-19 13:27 | DVHPN2 ---
Reviewed: Care Plan, H&P, Labs, Medications, Previous Orders, Radiology Changes from previous H/P or p: No Changes Objective Vitals Vital Signs Date Time Temp Pulse Resp B/P (MAP) Pulse Ox O2 Delivery O2 Flow Rate FiO2 03/19/24 09:30 140/58 03/19/24 09:04 98.2 63 20 95 98.2 03/19/24 08:00 Room Air* 0 21 Intake/Output Intake and Output 03/19/24 07:00 Intake Total 1000 ml Balance 1000 ml IV Total 1000 ml Medications Current Medications Medications Dose Ordered Sig/Bill Route Start Time Stop Time Status Last Admin Dose Admin Ceftriaxone Sodium 50 ml @ 100 mls/hr DAILY IV 03/19/24 03:30 03/19/24 09:29 100 MLS/HR Clopidogrel Bisulfate 75 mg DAILY PO 03/19/24 10:00 03/19/24 09:30 75 MG Furosemide 40 mg BID PO 03/19/24 10:00 03/19/24 09:30 40 MG Multivitamins 1 tab DAILY PO 03/19/24 10:00 03/19/24 09:30 1 TAB Sacubitril/ Valsartan 1 tab BID PO 03/19/24 10:00 03/19/24 09:41 1 TAB Tamsulosin HCl 0.4 mg HS PO 03/19/24 22:00 Patient Own Medication 1 tab HS PO 03/19/24 22:00 UNV Patient Own Medication 5,000 unit DAILY PO 03/19/24 10:00 UNV Patient Own Medication 1,000 mg DAILY PO 03/19/24 10:00 Finasteride 5 mg DAILY PO 03/19/24 10:00 03/19/24 09:31 5 MG Sodium Chloride 1,000 ml @ 100 mls/hr Q10H IV 03/19/24 03:30 03/19/24 04:03 100 MLS/HR Al Hydrox/Mg Hydrox/Simethicone 30 ml Q6HP PRN PO 03/19/24 03:30 Docusate Sodium 100 mg BIDPRN PRN PO 03/19/24 03:30 Acetaminophen 650 mg Q6HP PRN PO 03/19/24 03:30 Acetaminophen/ Hydrocodone Bitart 1 tab Q4HP PRN PO 03/19/24 03:30 Ondansetron HCl 4 mg Q4HP PRN IV 03/19/24 03:30 Morphine Sulfate 2 mg Q4HPRN PRN IV 03/19/24 03:30 Atorvastatin Calcium 80 mg HS PO 03/19/24 22:00 Cholecalciferol 5,000 unit DAILY PO 03/19/24 10:00 03/19/24 09:29 5,000 UNIT Laboratory Results Laboratory Tests 03/19/24 04:40 Chemistry Test 03/18/24 19:04 03/19/24 04:40 Albumin 4.4 g/dL (3.2-4.8) Calcium Level 9.5 mg/dL (8.7-10.4) 9.1 mg/dL (8.7-10.4) Total Protein 6.5 g/dL (5.7-8.2) Cardiac Markers Test 03/18/24 19:04 B-Type Natriuretic Peptide 321.75 pg/mL (0-100) LFT Test 03/18/24 19:04 Alanine Aminotransferase (ALT) 25 U/L (7-40) Alkaline Phosphatase 83 U/L (46-116) Aspartate Amino Transferase (AST) 18 U/L (13-40) Total Bilirubin 1.6 mg/dL (0.2-1.0) H Urinalysis Test 03/18/24 18:54 Urine Color Yellow (Yellow) Urine Clarity Clear (Clear) Urine pH 5.5 (5.0-9.0) Urine Specific [place] 1.026 (1.001-1.035) Urine Protein Negative (Negative) Urine Ketones Negative (Negative) Urine Blood Negative /uL (Negative) Urine Nitrite Negative (Negative) Urine Bilirubin Negative (Negative) Urine Urobilinogen Normal mg/dL (Negative) Urine Leukocyte Esterase Negative /uL (Negative) Urine RBC <1 /hpf (0 - 3) Urine WBC <1 /hpf (0 - 3) Urine Squamous Epithelial Cells None seen /hpf (<5) Urine Bacteria None seen /hpf (None Seen) Urine Glucose 4+ mg/dL (Normal) H Microbiology Microbiology Date/Time Source Procedure Growth Status 03/18/24 18:54 Voided Urine Urine Culture - Preliminary Resulted Labs and/or images reviewed: Labs reviewed by me, Image(s) reviewed by me Assessment/Plan Assessment/Plan Sepsis secondary to possible urinary tract infection: Blood cultures urine cultures Rocephin BPH: Flomax Proscar Acute lactic acidosis Acute on chronic congestive heart failure: Monica Saul History of CABG August 2022 [facility] History of coronary artery disease: Aspirin Plavix Hypertension Hypercholesterolemia: Lipitor Peripheral Neuropathy Flu test negative COVID test negative Urine cultures negative Time spent 66 minutes Patient is full code Advanced care planning 20 minutes Plan discussed with: Patient Date of Service: Mar 19, 2024 Billing Provider: YON RICH MD Common Visit Codes: [id number] CARE 30-74 MIN YON RICH MD Mar 19, 2024 13:27
[2024-03-19] MEDS: hydrALAZINE HCL 20 MG/ML VL IV PRN (18:43)
[2024-03-19] MEDS ORDERED: METO25TA93 PO (19:02)
[2024-03-19] MEDS ORDERED: DULO20CA PO (19:02)
[2024-03-19] MEDS ORDERED: DOCU-94 PO (19:02)
[2024-03-19] MEDS ORDERED: GABA-1250 PO (19:02)
[2024-03-19] MEDS ORDERED: FERR1TAB31 PO (19:02)
[2024-03-19] MEDS ORDERED: LOSA-534 PO (19:02)
[2024-03-19] MEDS ORDERED: ALFU10TA10 PO (19:02)
[2024-03-19] MEDS ORDERED: PATIENTS OWN MEDICATION (Atorvastatin Calcium 1 TAB) PO SCH (22:00)
[2024-03-19] MEDS: TAMSULOSIN HYDROCHLORIDE 0.4 MG CAP PO SCH (22:18)
[2024-03-19] MEDS: ATORVASTATIN 20 MG TAB PO SCH (22:21)
[2024-03-20] VITALS (8 sets, daily range): BP systolic 105–154; BP diastolic 55–81; PULSE 56–80; RESP 15–19; TEMP 97–98.7; O2SAT 95–98
--- NOTE | 2024-03-20 10:51 | DVHPN2 ---
Reviewed: Care Plan, H&P, Labs, Medications, Previous Orders, Radiology Changes from previous H/P or p: No Changes Objective Vitals Vital Signs Date Time Temp Pulse Resp B/P (MAP) Pulse Ox O2 Delivery O2 Flow Rate FiO2 03/20/24 09:48 121/55 03/20/24 05:00 98.7 73 18 98 98.7 03/19/24 20:00 Room Air* 0 21 Intake/Output Intake and Output 03/20/24 07:00 Intake Total 2157 ml Output Total 3750 ml Balance -1593 ml Intake Oral 2107 ml IV Total 50 ml Output Urine Total 3750 ml Medications Current Medications Medications Dose Ordered Sig/Bill Route Start Time Stop Time Status Last Admin Dose Admin Ceftriaxone Sodium 50 ml @ 100 mls/hr DAILY IV 03/19/24 03:30 03/20/24 09:39 100 MLS/HR Clopidogrel Bisulfate 75 mg DAILY PO 03/19/24 10:00 03/20/24 09:40 75 MG Furosemide 40 mg BID PO 03/19/24 10:00 03/20/24 09:48 40 MG Multivitamins 1 tab DAILY PO 03/19/24 10:00 03/20/24 09:40 1 TAB Sacubitril/ Valsartan 1 tab BID PO 03/19/24 10:00 03/20/24 09:40 1 TAB Tamsulosin HCl 0.4 mg HS PO 03/19/24 22:00 03/19/24 22:18 0.4 MG Patient Own Medication 1 tab HS PO 03/19/24 22:00 UNV Patient Own Medication 5,000 unit DAILY PO 03/19/24 10:00 UNV Patient Own Medication 1,000 mg DAILY PO 03/19/24 10:00 Finasteride 5 mg DAILY PO 03/19/24 10:00 03/20/24 09:39 5 MG Sodium Chloride 1,000 ml @ 100 mls/hr Q10H IV 03/19/24 03:30 03/20/24 09:38 100 MLS/HR Al Hydrox/Mg Hydrox/Simethicone 30 ml Q6HP PRN PO 03/19/24 03:30 Docusate Sodium 100 mg BIDPRN PRN PO 03/19/24 03:30 Acetaminophen 650 mg Q6HP PRN PO 03/19/24 03:30 Acetaminophen/ Hydrocodone Bitart 1 tab Q4HP PRN PO 03/19/24 03:30 Ondansetron HCl 4 mg Q4HP PRN IV 03/19/24 03:30 Morphine Sulfate 2 mg Q4HPRN PRN IV 03/19/24 03:30 Atorvastatin Calcium 80 mg HS PO 03/19/24 22:00 03/19/24 22:21 80 MG Cholecalciferol 5,000 unit DAILY PO 03/19/24 10:00 03/20/24 09:40 5,000 UNIT Hydralazine HCl 10 mg Q6HP PRN IV 03/19/24 18:30 03/19/24 18:43 10 MG Laboratory Results Laboratory Tests 03/19/24 04:40 Urinalysis Test 03/18/24 18:54 Urine Color Yellow (Yellow) Urine Clarity Clear (Clear) Urine pH 5.5 (5.0-9.0) Urine Specific [place] 1.026 (1.001-1.035) Urine Protein Negative (Negative) Urine Ketones Negative (Negative) Urine Blood Negative /uL (Negative) Urine Nitrite Negative (Negative) Urine Bilirubin Negative (Negative) Urine Urobilinogen Normal mg/dL (Negative) Urine Leukocyte Esterase Negative /uL (Negative) Urine RBC <1 /hpf (0 - 3) Urine WBC <1 /hpf (0 - 3) Urine Squamous Epithelial Cells None seen /hpf (<5) Urine Bacteria None seen /hpf (None Seen) Urine Glucose 4+ mg/dL (Normal) H Microbiology Microbiology Date/Time Source Procedure Growth Status 03/18/24 18:54 Voided Urine Urine Culture - Preliminary Resulted Labs and/or images reviewed: Labs reviewed by me, Image(s) reviewed by me Assessment/Plan Assessment/Plan Sepsis secondary to acute urinary tract infection: Urine Cultures mixed, continue Rocephin BPH: Flomax Proscar Acute lactic acidosis Acute on chronic congestive heart failure: Monica Saul History of CABG August 2022 [facility] History of coronary artery disease: Aspirin Plavix Hypertension Hypercholesterolemia: Lipitor Peripheral Neuropathy Flu test negative COVID test negative Spoke with the patient's friend Perfecto [phone] per patient's request and advised the current diagnosis and management Time spent 46 minutes Patient is full code Advanced care planning 20 minutes Plan discussed with: Patient Date of Service: Mar 20, 2024 Billing Provider: YON RICH MD Common Visit Codes: [id number] INP/OBS CARE(HIGH) YON RICH MD Mar 20, 2024 10:50
[2024-03-21] VITALS (7 sets, daily range): BP systolic 96–141; BP diastolic 45–76; PULSE 60–68; RESP 18–20; TEMP 97.6–98.2; O2SAT 95–98
--- NOTE | 2024-03-21 09:39 | DVHPN2 ---
Reviewed: Care Plan, H&P, Labs, Medications, Previous Orders, Radiology Changes from previous H/P or p: No Changes Objective Vitals Vital Signs Date Time Temp Pulse Resp B/P (MAP) Pulse Ox O2 Delivery O2 Flow Rate FiO2 03/21/24 05:00 98.2 62 20 122/52 (75) 95 98.2 03/20/24 20:00 Room Air* 0 21 Intake/Output Intake and Output 03/21/24 07:00 Intake Total 2150 ml Output Total 4400 ml Balance -2250 ml Intake Oral 1500 ml IV Total 650 ml Output Urine Total 4400 ml # Bowel Movements 1 Medications Current Medications Medications Dose Ordered Sig/Bill Route Start Time Stop Time Status Last Admin Dose Admin Ceftriaxone Sodium 50 ml @ 100 mls/hr DAILY IV 03/19/24 03:30 03/21/24 09:18 100 MLS/HR Clopidogrel Bisulfate 75 mg DAILY PO 03/19/24 10:00 03/21/24 09:19 75 MG Furosemide 40 mg BID PO 03/19/24 10:00 03/20/24 09:48 40 MG Multivitamins 1 tab DAILY PO 03/19/24 10:00 03/21/24 09:19 1 TAB Sacubitril/ Valsartan 1 tab BID PO 03/19/24 10:00 03/21/24 09:18 1 TAB Tamsulosin HCl 0.4 mg HS PO 03/19/24 22:00 03/20/24 22:43 0.4 MG Patient Own Medication 1 tab HS PO 03/19/24 22:00 UNV Patient Own Medication 5,000 unit DAILY PO 03/19/24 10:00 UNV Patient Own Medication 1,000 mg DAILY PO 03/19/24 10:00 Finasteride 5 mg DAILY PO 03/19/24 10:00 03/21/24 09:19 5 MG Sodium Chloride 1,000 ml @ 100 mls/hr Q10H IV 03/19/24 03:30 03/21/24 09:18 100 MLS/HR Al Hydrox/Mg Hydrox/Simethicone 30 ml Q6HP PRN PO 03/19/24 03:30 Docusate Sodium 100 mg BIDPRN PRN PO 03/19/24 03:30 Acetaminophen 650 mg Q6HP PRN PO 03/19/24 03:30 Acetaminophen/ Hydrocodone Bitart 1 tab Q4HP PRN PO 03/19/24 03:30 Ondansetron HCl 4 mg Q4HP PRN IV 03/19/24 03:30 Morphine Sulfate 2 mg Q4HPRN PRN IV 03/19/24 03:30 Atorvastatin Calcium 80 mg HS PO 03/19/24 22:00 03/20/24 22:45 80 MG Cholecalciferol 5,000 unit DAILY PO 03/19/24 10:00 03/21/24 09:19 5,000 UNIT Hydralazine HCl 10 mg Q6HP PRN IV 03/19/24 18:30 03/19/24 18:43 10 MG Laboratory Results Laboratory Tests 03/19/24 04:40 Urinalysis Test 03/18/24 18:54 Urine Color Yellow (Yellow) Urine Clarity Clear (Clear) Urine pH 5.5 (5.0-9.0) Urine Specific [place] 1.026 (1.001-1.035) Urine Protein Negative (Negative) Urine Ketones Negative (Negative) Urine Blood Negative /uL (Negative) Urine Nitrite Negative (Negative) Urine Bilirubin Negative (Negative) Urine Urobilinogen Normal mg/dL (Negative) Urine Leukocyte Esterase Negative /uL (Negative) Urine RBC <1 /hpf (0 - 3) Urine WBC <1 /hpf (0 - 3) Urine Squamous Epithelial Cells None seen /hpf (<5) Urine Bacteria None seen /hpf (None Seen) Urine Glucose 4+ mg/dL (Normal) H Microbiology Microbiology Date/Time Source Procedure Growth Status 03/18/24 18:54 Voided Urine Urine Culture - Preliminary Resulted Labs and/or images reviewed: Labs reviewed by me, Image(s) reviewed by me Assessment/Plan Assessment/Plan Sepsis secondary to acute urinary tract infection: Urine Cultures mixed, continue Rocephin BPH: Flomax Proscar Acute lactic acidosis Acute on chronic congestive heart failure: Monica C[place] History of CABG August 2022 [facility] History of coronary artery disease: Aspirin Plavix Hypertension Hypercholesterolemia: Lipitor Peripheral Neuropathy Flu test negative COVID test negative Spoke with the patient's friend Perfecto [phone] per patient's request and advised the current diagnosis and management Time spent 46 minutes Patient is full code Advanced care planning 20 minutes Plan discussed with: Patient My Orders Orders - YON RICH MD Procedure Category Date Status Time Blood Culture [place] 11/18/24 In Process 10:50 Date of Service: Mar 21, 2024 Billing Provider: YON RICH MD Common Visit Codes: [id number] INP/OBS CARE(HIGH) YON RICH MD Mar 21, 2024 09:39
[2024-03-22] VITALS (8 sets, daily range): BP systolic 108–156; BP diastolic 56–73; PULSE 60–68; RESP 17–19; TEMP 97.7–98.6; O2SAT 94–96
--- NOTE | 2024-03-22 09:40 | DVHPN2 ---
Reviewed: Care Plan, H&P, Labs, Medications, Previous Orders, Radiology Changes from previous H/P or p: No Changes Objective Vitals Vital Signs Date Time Temp Pulse Resp B/P (MAP) Pulse Ox O2 Delivery O2 Flow Rate FiO2 03/22/24 09:00 98.6 68 19 117/73 (88) 96 98.6 03/21/24 20:10 Room Air* 0 21 Intake/Output Intake and Output 03/22/24 07:00 Intake Total 1500 ml Output Total 675 ml Balance 825 ml Intake Oral 1450 ml IV Total 50 ml Output Urine Total 675 ml # Voids 3 # Bowel Movements 1 Medications Current Medications Medications Dose Ordered Sig/Bill Route Start Time Stop Time Status Last Admin Dose Admin Ceftriaxone Sodium 50 ml @ 100 mls/hr DAILY IV 03/19/24 03:30 03/22/24 08:36 100 MLS/HR Clopidogrel Bisulfate 75 mg DAILY PO 03/19/24 10:00 03/22/24 08:31 75 MG Furosemide 40 mg BID PO 03/19/24 10:00 03/22/24 08:32 40 MG Multivitamins 1 tab DAILY PO 03/19/24 10:00 03/22/24 08:30 1 TAB Sacubitril/ Valsartan 1 tab BID PO 03/19/24 10:00 03/22/24 08:36 1 TAB Tamsulosin HCl 0.4 mg HS PO 03/19/24 22:00 03/21/24 22:41 0.4 MG Patient Own Medication 1 tab HS PO 03/19/24 22:00 UNV Patient Own Medication 5,000 unit DAILY PO 03/19/24 10:00 UNV Patient Own Medication 1,000 mg DAILY PO 03/19/24 10:00 Finasteride 5 mg DAILY PO 03/19/24 10:00 03/22/24 08:30 5 MG Sodium Chloride 1,000 ml @ 100 mls/hr Q10H IV 03/19/24 03:30 03/22/24 04:18 100 MLS/HR Al Hydrox/Mg Hydrox/Simethicone 30 ml Q6HP PRN PO 03/19/24 03:30 Docusate Sodium 100 mg BIDPRN PRN PO 03/19/24 03:30 Acetaminophen 650 mg Q6HP PRN PO 03/19/24 03:30 Acetaminophen/ Hydrocodone Bitart 1 tab Q4HP PRN PO 03/19/24 03:30 Ondansetron HCl 4 mg Q4HP PRN IV 03/19/24 03:30 Morphine Sulfate 2 mg Q4HPRN PRN IV 03/19/24 03:30 Atorvastatin Calcium 80 mg HS PO 03/19/24 22:00 03/21/24 22:41 80 MG Cholecalciferol 5,000 unit DAILY PO 03/19/24 10:00 03/22/24 08:34 5,000 UNIT Hydralazine HCl 10 mg Q6HP PRN IV 03/19/24 18:30 03/22/24 01:15 10 MG Laboratory Results Laboratory Tests 03/19/24 04:40 Urinalysis Test 03/18/24 18:54 Urine Color Yellow (Yellow) Urine Clarity Clear (Clear) Urine pH 5.5 (5.0-9.0) Urine Specific [place] 1.026 (1.001-1.035) Urine Protein Negative (Negative) Urine Ketones Negative (Negative) Urine Blood Negative /uL (Negative) Urine Nitrite Negative (Negative) Urine Bilirubin Negative (Negative) Urine Urobilinogen Normal mg/dL (Negative) Urine Leukocyte Esterase Negative /uL (Negative) Urine RBC <1 /hpf (0 - 3) Urine WBC <1 /hpf (0 - 3) Urine Squamous Epithelial Cells None seen /hpf (<5) Urine Bacteria None seen /hpf (None Seen) Urine Glucose 4+ mg/dL (Normal) H Microbiology Microbiology Date/Time Source Procedure Growth Status 03/20/24 12:56 Blood Blood Culture - Preliminary NO GROWTH AFTER 24 HOURS OF INCUBATION. 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 [facility] History of coronary artery disease: Aspirin Plavix Hypertension Hypercholesterolemia: Lipitor Peripheral Neuropathy Flu test negative COVID test negative Spoke with the patient's friend Mate [phone] per patient's request and advised the current diagnosis and management Time spent 46 minutes Patient is full code Advanced care planning 20 minutes PICC line ordered Patient will be discharged to assisted facility for Rocephin IV for two weeks for complicated UTI Plan discussed with: Patient Date of Service: Mar 22, 2024 Billing Provider: YON RICH MD Common Visit Codes: [id number] INP/OBS CARE(HIGH) YON RICH MD Mar 22, 2024 09:40
--- NOTE | 2024-03-22 09:49 | DVHDS2 ---
Discharge Summary Date of Admission Mar 19, 2024 at 03:24 Date of Discharge: Mar 22, 2024 Admitting Diagnosis Generalized weakness and altered mental status Wounds: None Labs/Diagnostic Data: Laboratory Results Test 03/19/24 20:01 03/19/24 04:40 03/18/24 21:05 03/18/24 19:13 POC Glucose 182 mg/dl (70-106) White Blood Count 6.2 10^3/uL (4.4-10.8) Red Blood Count 5.14 10^6/uL (4.5-5.90) Hemoglobin 15.3 g/dL (13.5-17.5) Hematocrit 46.4 % (41.0-53.0) Mean Corpuscular Volume 90.3 fL (80.0-100.0) Mean Corpuscular Hemoglobin 29.8 pg (28.0-32.0) Mean Corpuscular Hemoglobin Concent 33.0 g/dL (32.0-36.0) Red Cell Distribution Width 13.8 % (11.8-14.3) Platelet Count 132 10^3/uL (140-450) Mean Platelet Volume 7.7 fL (6.9-10.8) Neutrophils (%) (Auto) 85.4 % (37.0-80.0) Lymphocytes (%) (Auto) 6.6 % (10.0-50.0) Monocytes (%) (Auto) 6.7 % (0.0-12.0) Eosinophils (%) (Auto) 0.9 % (0.0-7.0) Basophils (%) (Auto) 0.4 % (0.0-2.0) Neutrophils # (Auto) 5.3 10 ^3/uL (1.6-8.6) Lymphocytes # (Auto) 0.4 10 ^3/uL (0.4-5.4) Monocytes # (Auto) 0.4 10 ^3/uL (0-1.3) Eosinophils # (Auto) 0.1 10 ^3/uL (0-0.8) Basophils # (Auto) 0 10 ^3/uL (0-0.2) Nucleated Red Blood Cells 0.1 % Sodium Level 139 mmol/L (136-145) Potassium Level 4.2 mmol/L (3.5-5.1) Chloride Level 104 mmol/L (98-107) Carbon Dioxide Level 30 mmol/L (20-31) Anion Gap 5 (5-15) Blood Urea Nitrogen 26 mg/dL (9-23) Creatinine 1.60 mg/dL (0.700-1.30) Glomerular Filtration Rate Calc 43 mL/min (>90) BUN/Creatinine Ratio 16.3 (10.0-20.0) Serum Glucose 132 mg/dL (74-106) Calcium Level 9.1 mg/dL (8.7-10.4) Troponin I High Sensitivity 18 ng/L (</=54) Lactic Acid Level 2.6 mmol/L (0.4-2.0) Influenza Type A Antigen Negative (Negative) Influenza Type B Antigen Negative (Negative) SARS-CoV-2 Antigen (Rapid) Negative (NEGATIVE) Test 03/18/24 19:04 03/18/24 18:54 Total Bilirubin 1.6 mg/dL (0.2-1.0) Aspartate Amino Transferase (AST) 18 U/L (13-40) Alanine Aminotransferase (ALT) 25 U/L (7-40) Alkaline Phosphatase 83 U/L (46-116) Creatine Kinase 64 U/L (46-171) B-Type Natriuretic Peptide 321.75 pg/mL (0-100) Total Protein 6.5 g/dL (5.7-8.2) Albumin 4.4 g/dL (3.2-4.8) Urine Color Yellow (Yellow) Urine Clarity Clear (Clear) Urine pH 5.5 (5.0-9.0) Urine Specific [place] 1.026 (1.001-1.035) Urine Protein Negative (Negative) Urine Ketones Negative (Negative) Urine Blood Negative /uL (Negative) Urine Nitrite Negative (Negative) Urine Bilirubin Negative (Negative) Urine Urobilinogen Normal mg/dL (Negative) Urine Leukocyte Esterase Negative /uL (Negative) Urine RBC <1 /hpf (0 - 3) Urine WBC <1 /hpf (0 - 3) Urine Squamous Epithelial Cells None seen /hpf (<5) Urine Bacteria None seen /hpf (None Seen) Urine Glucose 4+ mg/dL (Normal) Other Laboratory Tests 03/19/24 04:40 Brief Hx & Hospital Course: 83-year-old male with a history of BPH CHF history of CABG August 2022 at [facility] history of coronary artery disease on aspirin Plavix hypertension hypercholesterolemia peripheral neuropathy came in for generalized weakness flu test was negative COVID test was negative found to have acute urinary tract infection started on Rocephin urine cultures came mixed. Patient feels slightly better but still having weakness and confusion. 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 [facility] History of coronary artery disease: Aspirin Plavix Hypertension Hypercholesterolemia: Lipitor Peripheral Neuropathy Flu test negative COVID test negative Discharge Disposition: Long-Term Facility Discharge Instruct/Medications Diet: Cardiac 2g Na,low cholest Activity: Light activity Follow Up/Referral: Follow up with the snf Dr Medications: Rocephin 1 g IV daily for two weeks for complicated UTI See list for other meds 39 (Time Taken for discharge summary 39 minute) Discharge Statement: "Patient was advised to return to the ER or call 911 if any headaches, dizziness, shortness of breath, chest pain, abdominal pain, bleeding, fevers, or worsening of medical condition. Patient was counseled about treatment plan, medications, possible side effects, patientverbalized understanding. All questions were answered to the best of my ability. 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
== END 2024-03-22 19:30 | DRG 872 ==
LOC: ER 18:13 → OVERFLOW 03-19 03:24 → EAST 03-19 06:45
PROVIDERS: ADMIT Hospitalist; ATTEND Family Medicine
PROC: 05HD33Z Insertion of Infusion Device into Right Cephalic Vein, Percutaneous Approach (ICD-10-PCS; principal; 2024-03-22)
PROC: B54MZZA Ultrasonography of Right Upper Extremity Veins, Guidance (ICD-10-PCS; 2024-03-22)
DX: A41.9 Sepsis, unspecified organism (principal); N39.0 Urinary tract infection, site not specified; E87.20 Acidosis, unspecified; I13.0 Hypertensive heart and chronic kidney disease with heart failure and stage 1 through stage 4 chronic kidney disease, or unspecified chronic kidney disease; N17.9 Acute kidney failure, unspecified; Z20.822 Contact with and (suspected) exposure to COVID-19; I50.9 Heart failure, unspecified; N40.0 Benign prostatic hyperplasia without lower urinary tract symptoms; N18.9 Chronic kidney disease, unspecified; E11.40 Type 2 diabetes mellitus with diabetic neuropathy, unspecified; I25.10 Atherosclerotic heart disease of native coronary artery without angina pectoris; E78.00 Pure hypercholesterolemia, unspecified; K59.00 Constipation, unspecified; E11.22 Type 2 diabetes mellitus with diabetic chronic kidney disease; K30 Functional dyspepsia; Z95.1 Presence of aortocoronary bypass graft; Z79.899 Other long term (current) drug therapy; Z86.73 Personal history of transient ischemic attack (TIA), and cerebral infarction without residual deficits
CPT/HCPCS: 36415; 74176; 80048; 80053; 81001; 82550; 82962; 83605; 83880; 84484; 85025; 87040; 87086; 87426; 87804; 96360; G0378